=== PATIENT | male | born 1975 | race Caucasian/White ===

== ENCOUNTER 2017-10-07 18:14 | Emergency (ER) | payer SELFPAY ==
[2017-10-07 18:36] VITALS: BP 117/76
--- NOTE | 2017-10-07 19:25 | ERNOTE ---
Medical Problem HPI - Narrative Date of Service: 10/07/17 - General Chief Complaint: Flu Symptoms Time Seen by Provider: 10/07/17 18:42 Source: patient Exam Limitations: no limitations - Immun/Allergies/Home Medications Immunizations: IMMUNIZATION HX Immunizations Up to Date Yes History of Influenza Vaccine No Hx Pneumococcal Vaccination No Allergies/Adverse Reactions: Allergies Penicillins Allergy (Unknown, Verified 10/07/17 18:36) Unsure of result Home Medications: HOME MEDICATIONS Aspirin 325 mg PO DAILY 07/18/13 [Last Taken Unknown] Lisinopril [Zestril] 5 mg PO DAILY 07/18/13 [Last Taken Unknown] Metoprolol Tartrate [Lopressor] 50 mg PO BID 07/18/13 [Last Taken Unknown] Oseltamivir Phosphate [Tamiflu] 75 mg PO BID #10 cap 10/07/17 [Last Taken Unknown] - History of Present History Narrative: patient has had cough fever and congestion for last two days, son has influenza a Timing: constant, getting worse Severity: moderate Modifying Factors - (Improves): Present: rest Modifying Factors - (Worsens): Present: movement Review of Systems - Review of Systems Constitutional: Present: See HPI, weakness, fatigue, malaise EYE: Present: no symptoms reported ENT: Present: nose pain, nose congestion, sore throat Respiratory: Present: shortness of breath, cough Cardiology: Present: no symptoms reported Gastrointestinal/Abdominal: Present: no symptoms reported Genitourinary: Present: no symptoms reported Musculoskeletal: Present: no symptoms reported Skin: Present: no symptoms reported Neurological: Present: no symptoms reported Endocrine: Present: no symptoms reported Hematologic/Lymphatic: Present: no symptoms reported Psych: Present: no symptoms reported All Other Systems: All systems neg except as marked - Narrative Narrative: unremarkable - Patient's Past Medical History Patient History - Medical: No pertinent hx Patient History - Cardiac/Respiratory: Hypertension, Myocardial Infarction, Pneumonia Patient History - Cancer: No Hx of Cancer Patient History - Surgical Procedures: Cardiac stent, Other Patient History - Other: None - Family History Family History:: no untoward family reactions to anesthesia, no familial bleeding tendencies, no family history of clotting disorders, no family history of premature - Social History Living Situations: home Abuse History: No History of abuse Psych History: No pertinent hx Smoking Status: Current every day smoker Have you smoked in the past 12 months: Yes Do you dip or chew tobacco: No Patient requests Smoking Cessation Consult: No Initiate information on Smoking Cessation: No Alcohol Use: none Drug Use: none - Immunizations Immunizations Up to Date: Yes Hx Pneumococcal Vaccination: No History of Influenza Vaccine: No Physical Exam - Physical Exam Narrative: patient appear in moderate distress General Appearance: Present: alert, moderate distress Head Exam: Present: normal inspection, no evidence of injury Eye Exam: Normal inspection: bilateral, PERRL: bilateral, EOMI: bilateral Ears, Nose, Throat: Present: nasal congestion, sinus pain/drainage, pharyngeal erythema Neck: Present: normal inspection, nontender Respiratory: Present: rales, rhonchi Cardiovascular/Chest: Present: regular rate, rhythm, no murmur, normal peripheral pulses Peripheral Pulses: N=norm/S=strong/W=weak/B=bound/A=absent: Carotid (R): Normal , Carotid (L): Normal, Radial (R): Normal, Radial (L): Normal, Femoral (R): Normal, Femoral (L): Normal, Dorsalis-pedis (R): Normal, Dorsalis-pedis (L): Normal Gastrointestinal/Abdominal: Present: normal bowel sounds, nontender, nondistended, soft, no organomegaly Back Exam: Present: normal inspection, normal range of motion, no CVA tenderness , no vertebral tenderness Extremity Exam: Present: normal inspection, non-tender, normal range of motion, no edema Neurological Exam: Present: alert, oriented, normal mood/affect, no motor/ sensory deficits DTR: N=norm/NB=norm/brisk/A=abs/DD=dull/dimin/HC=hyperactive: Bicep (R): Normal , Bicep (L): Normal, Tricep (R): Normal, Tricep (L): Normal, Knee (R): Normal, Knee (L): Normal, Ankle (R): Normal, Ankle (L): Normal Skin Exam: Present: normal color, warm/dry Lymphatic Exam: Present: no adenopathy ED Progress - Date and Time Seen: Date and Time: 10/07/17 19:23 unchanged - Results and Orders Patient's Lab Results:: I have reviewed the patient's lab results. - Vital Signs Vital Signs: Vital Signs 10/07/17 18:28 Temperature 38.6 C H Pulse Rate 113 H Respiratory 22 H Rate Blood Pressure 117/76 O2 Sat by Pulse 96 Oximetry - Progress/Reassessment Chief Complaint: Flu Symptoms Progress:: Unchanged - Transfer of Care Expected Disposition: Discharge Plan - Plan Plan: to be discharged Departure Clinical Impression: Influenza A - Departure Disposition: Home self-care Condition: Fair Prescriptions: Oseltamivir Phosphate [Tamiflu] 75 mg PO BID #10 cap
== END 2017-10-07 19:25 | disposition home or self-care (01) ==
LOC: ER 18:14
DX: Z95.5 Presence of coronary angioplasty implant and graft; J10.1 Influenza due to other identified influenza virus with other respiratory manifestations; F17.200 Nicotine dependence, unspecified, uncomplicated; I25.2 Old myocardial infarction; I10 Essential (primary) hypertension